=== PATIENT | female | born 1990 | race Caucasian/White ===

== ENCOUNTER 2017-04-19 00:06 | Emergency (ER) | payer BC ==
[~2017-04-19] VITALS: Ht 165.1 cm; Wt 69.9 kg
[2017-04-19 01:10] VITALS: BP 133/78
--- NOTE | 2017-04-19 01:20 | NUR ---
CALLED FOR PT IN [facility]. NO RESPONSE
--- NOTE | 2017-04-19 01:40 | NUR ---
CALLED FOR PT IN [facility] AGAIN, NO RESPONSE
--- NOTE | 2017-04-19 01:43 | NUR ---
INFORMED BY SECURITY PT WAS SEEN LEAVING THE HOSPITAL
== END 2017-04-19 01:45 | disposition left against medical advice (07) ==
LOC: ER 00:11
DX: Z53.21 Procedure and treatment not carried out due to patient leaving prior to being seen by health care provider (principal)
CPT/HCPCS: A4606; Z7610